=== PATIENT | female | born 1980 | race Caucasian/White ===

== ENCOUNTER 2019-04-01 11:36 | Emergency (ER) | payer BC ==
[~2019-04-01] VITALS: Ht 170.2 cm; Wt 120.7 kg
[~2019-04-01 11:36] MED LIST: ALBU1.25 NEB; METF500T17 PO
--- NOTE | 2019-04-01 12:54 | NUR ---
PIV STARTED. 1L NS BOLUS STARTED. LABS DRAWN, URINE COLLECTED AND SENT TO LAB. RAD IN ROOM.
[2019-04-01] MEDS ORDERED: SODIUM CHLORIDE 0.9% 1,000ML IVBOLUS ONE ×2 (13:00→15:30)
[2019-04-01 13:05] LABS: BASOPHILS # (AUTO) 0.03 x10^3/uL (0-0.1); BASOPHILS % (AUTO) 0 % (0-1); EOSINOPHILS # (AUTO) 0.22 x10^3/uL (0-0.4); EOSINOPHILS % (AUTO) 3 % (1-7); LYMPHOCYTES # (AUTO) 3.49 x10^3/uL (1-3.4); LYMPHOCYTES % (AUTO) 43 % (22-44); MD NO; MEAN CORPUSCULAR HEMOGLOBIN 32.2 pg (27.0-34.8); MEAN CORPUSCULAR HGB CONC 34.3 g/dL (32.4-35.8); MEAN CORPUSCULAR VOLUME 93.7 fL (80-100); MEAN PLATELET VOLUME 11.2 fL (7.4-10.4); MONOCYTES # (AUTO) 0.53 x10^3/uL (0.2-0.8); MONOCYTES % (AUTO) 7 % (2-9); NEUTROPHILS # (AUTO) 3.86 x10^3/uL (1.8-6.8); NEUTROPHILS % (AUTO) 48 % (42-75); PLATELET COUNT 144 x10^3/uL (130-400); RED BLOOD COUNT 4.98 x10^6/uL (3.82-5.3); RED CELL DISTRIBUTION WIDTH 11.7 % (9.6-15.2)
[2019-04-01 13:07] LABS: MICROSCOPIC NOT IND
[2019-04-01 13:14] LABS: PH, VENOUS 7.412 pH (7.320-7.420)
[2019-04-01 13:15] LABS: O2 FLOW RA L/min
[2019-04-01 13:18] LABS: ALANINE AMINOTRANSFERASE 76 U/L (12-78); ALBUMIN 3.5 g/dL (3.4-5.0); ANION GAP 8 mmol/L (5-15); CALCIUM 9.1 mg/dL (8.5-10.1); CHLORIDE 98 mmol/L (98-107); CREATININE 0.99 mg/dL (0.55-1.02)
[2019-04-01 13:20] LABS: ALKALINE PHOSPHATASE 195 U/L (45-117); BILIRUBIN,TOTAL 0.7 mg/dL (0.2-1.0); TOTAL PROTEIN 7.6 g/dL (6.4-8.2)
[2019-04-01 13:44] LABS: ACETONE, SERUM Negative (Negative)
--- NOTE | 2019-04-01 14:01 | NUR ---
2ND 1L BOLUS NS STARTED.
--- NOTE | 2019-04-01 14:02 | NUR ---
VS UPDATED. PT RESTINGON KAVITHA W/ FAMILY AT BEDSIDE AND CALL LIGHT IN REACH. ALL TESTS RESULTS. PT IS UP FOR RECHECK.
[2019-04-01] MEDS ORDERED: INSULIN SINGLE DOSE, ER ONE (14:32)
[2019-04-01] MEDS: INSULIN REGULAR 100 UNITS/ML, 3ML VIAL IV ONE ×2 (14:35→14:37)
--- NOTE | 2019-04-01 14:37 | NUR ---
PT MEDICATED PER EMAR.
--- NOTE | 2019-04-01 15:00 | NUR ---
PROVIDER AT BEDSIDE FOR RECHECK.
[2019-04-01 15:01] VITALS: BP 124/76
--- NOTE | 2019-04-01 15:29 | NUR ---
PROVIDER UPDATED ON CURRENT FSBS OF 192.
--- NOTE | 2019-04-01 16:29 | NUR ---
Patient given discharge instructions and they have confirmed that they understand the instructions. Patient ambulatory with steady gait.
== END 2019-04-01 16:30 | disposition home or self-care (01) ==
LOC: ED 12:46
DX: E11.65 Type 2 diabetes mellitus with hyperglycemia (principal); R42 Dizziness and giddiness; J45.909 Unspecified asthma, uncomplicated
CPT/HCPCS: 36415; 71045; 80053; 81003; 82010; 82803; 82962; 83690; 85025; 93005; 96361; 96374; 99284; J1815; J7030